=== PATIENT | female | born 1955 | race Caucasian/White ===

== ENCOUNTER 2017-11-07 14:52 | Outpatient (REF) | payer MEDICARE, MEDICAID, SELFPAY ==
[2017-11-07 21:32] LABS: ALT 249 U/L (12-78); AST 314 U/L (15-37); Albumin 3.1 g/dL (3.4-5.0); Alkaline Phosphatase 188 U/L (46-116); Anion Gap 8.6 mmol/L (3-11); BUN 7 mg/dL (7-18); Bilirubin, Total 0.4 mg/dL (0.2-1.0); CO2 31.4 mmol/L (21.0-32.0); CREATININE 0.63 mg/dL (0.55-1.02); Calcium 8.9 mg/dL (8.5-10.1); Chloride 100 mmol/L (98-107); Glucose 62 mg/dL (70-100); Potassium 4.3 mmol/L (3.5-5.1); Sodium 140 mmol/L (136-145)
== END 2017-11-07 14:53 ==
LOC: NCHCN 14:52
PROVIDERS: PCP Nurse Practitioner Family; Visit Provider Registered Nurse
DX: F10.20 Alcohol dependence, uncomplicated (principal); F32.9 Major depressive disorder, single episode, unspecified
CPT/HCPCS: 80053

== ENCOUNTER 2017-11-15 12:02 | Outpatient (REF) | payer MEDICARE, MEDICAID, SELFPAY ==
[2017-11-15 20:32] LABS: Bilirubin Negative (Negative); Blood Small (Negative); Clarity Sl Cloudy; Glucose Negative (Negative); Ketones Negative (Negative); Leukocyte Esterase Moderate (Negative); Nitrite Negative (Negative); Specific Gravity <= 1.005 (1.005-1.025)
[2017-11-15 20:38] LABS: Bacteria Few HPF (Negative); C & S Indicated? C&S Done As Ordered; Casts Negative LPF (Negative); Crystals Negative HPF (Negative); Epithelial Cells Few HPF (Negative); Mucus Negative (Negative); WBC >50 HPF (0-5)
== END 2017-11-15 12:03 ==
LOC: NCHCN 12:02
PROVIDERS: PCP Nurse Practitioner Family; Visit Provider Registered Nurse
DX: R35.0 Frequency of micturition (principal); R39.15 Urgency of urination
CPT/HCPCS: 87077; 81003; 81015; 87086; 87186

== ENCOUNTER 2018-08-06 14:23 | Outpatient (REF) | payer MEDICARE, MEDICAID, SELFPAY ==
[2018-08-06 22:02] LABS: ALT 438 U/L (12-78); AST 499 U/L (15-37); Albumin 3.4 g/dL (3.4-5.0); Alkaline Phosphatase 211 U/L (46-116); Anion Gap 7.2 mmol/L (3-11); BUN 12 mg/dL (7-18); Bilirubin, Total 1.8 mg/dL (0.2-1.0); CO2 28.8 mmol/L (21.0-32.0); CREATININE 0.78 mg/dL (0.55-1.02); Calcium 8.7 mg/dL (8.5-10.1); Chloride 98 mmol/L (98-107); Glucose 94 mg/dL (70-100); Potassium 3.9 mmol/L (3.5-5.1); Sodium 134 mmol/L (136-145); Total Protein 7.4 g/dL (6.4-8.2)
[2018-08-06 22:29] LABS: Bilirubin Moderate (Negative); Blood Negative (Negative); Clarity Sl Cloudy; Glucose 100 mg/dL (Negative); Ketones 15 mg/dL (Negative); Leukocyte Esterase Negative (Negative); Nitrite Negative (Negative)
[2018-08-06 22:39] LABS: Bacteria Negative HPF (Negative); Epithelial Cells Negative HPF (Negative); Other Cells Negative (Negative); RBC Negative (0-2); WBC Negative HPF (0-5)
[2018-08-06 22:40] LABS: C & S Indicated? No; Casts Negative LPF (Negative); Crystals Many Amorphous HPF (Negative); Mucus Negative (Negative)
== END 2018-08-06 14:43 ==
LOC: NCHCN 14:23
PROVIDERS: PCP Nurse Practitioner Family; Visit Provider Registered Nurse
DX: R74.8 Abnormal levels of other serum enzymes (principal); R82.90 Unspecified abnormal findings in urine
CPT/HCPCS: 80053; 80076; 81003; 81015

== ENCOUNTER 2018-08-14 19:58 | Outpatient (REF) | payer MEDICARE, MEDICAID, SELFPAY ==
[2018-08-14 20:49] LABS: ALT 282 U/L (12-78); AST 290 U/L (15-37); Alkaline Phosphatase 158 U/L (46-116); Bilirubin, Total 0.9 mg/dL (0.2-1.0); Sodium 137 mmol/L (136-145); Total Protein 6.7 g/dL (6.4-8.2)
[2018-08-14 21:06] LABS: Bilirubin, Direct 0.67 mg/dL (0.00-0.20)
[2018-08-18 12:00] LABS: Hepatitis C Ab w Rflx HCV PCR Reactive (NEGAT)
[2018-08-18 12:08] LABS: HBs Antibody, Quant 248.1 mIU/mL; Hepatitis B Surface Ab Positive
== END 2018-08-14 20:18 ==
LOC: NCHCN 19:58
PROVIDERS: PCP Nurse Practitioner Family; Visit Provider Registered Nurse
DX: R94.5 Abnormal results of liver function studies (principal)
CPT/HCPCS: 80076; 86706; 86803; 84295; 87522

== ENCOUNTER 2018-08-28 12:55 | Outpatient (REF) | payer MEDICARE, MEDICAID, SELFPAY ==
[2018-08-29 12:40] LABS: ALT 100 U/L (12-78); AST 71 U/L (15-37); Albumin 2.4 g/dL (3.4-5.0); Alkaline Phosphatase 140 U/L (46-116); Bilirubin, Direct 0.41 mg/dL (0.00-0.20); Bilirubin, Total 0.7 mg/dL (0.2-1.0); Total Protein 7.2 g/dL (6.4-8.2)
[2018-09-01 10:49] LABS: HIV-1/2 Ag & Ab Screen Negative (NEGAT)
[2018-09-01 11:27] LABS: Syphilis Serology (RPR) Negative (Negative)
[2018-09-01 13:50] LABS: Chlamydia Result Negative; GC Result Negative; Specimen Description URINE
[2018-09-01 23:30] LABS: HCV Genotype Undetected (Undetected)
== END 2018-08-28 13:15 ==
LOC: NCHCN 12:55
PROVIDERS: PCP Nurse Practitioner Family; Visit Provider Registered Nurse
DX: B19.20 Unspecified viral hepatitis C without hepatic coma (principal); Z11.3 Encounter for screening for infections with a predominantly sexual mode of transmission; Z11.4 Encounter for screening for human immunodeficiency virus [HIV]
CPT/HCPCS: 80076; 87389; 87491; 87591; 86592; 87521

== ENCOUNTER 2018-08-29 22:01 | Outpatient (REF) | payer MEDICARE, MEDICAID, SELFPAY ==
[2018-08-29 21:07] LABS: INR 1.2 (0.9-1.1); Prothrombin Time 11.8 sec (9.3-11.0)
== END 2018-08-29 22:21 ==
LOC: NCHCN 22:01
PROVIDERS: PCP Nurse Practitioner Family; Visit Provider Registered Nurse
DX: B19.20 Unspecified viral hepatitis C without hepatic coma (principal); Z11.3 Encounter for screening for infections with a predominantly sexual mode of transmission
CPT/HCPCS: 85610

== ENCOUNTER 2018-09-09 14:19 | Outpatient (REF) | payer MEDICARE, MEDICAID, SELFPAY ==
[2018-09-12 15:03] LABS: HCV RNA Detection Quantitative 556 IU/mL (UNDECT)
== END 2018-09-09 14:39 ==
LOC: NCHCN 14:19
PROVIDERS: PCP Nurse Practitioner Family; Visit Provider Registered Nurse
DX: B19.20 Unspecified viral hepatitis C without hepatic coma (principal)
CPT/HCPCS: 86803; 87522

== ENCOUNTER 2018-10-13 21:44 | Outpatient (REF) | payer MEDICARE, MEDICAID, SELFPAY ==
[2018-10-13 21:41] LABS: INR 1.2 (0.9-1.1); Prothrombin Time 11.7 sec (9.3-11.0)
[2018-10-13 21:46] LABS: ALT 73 U/L (12-78); AST 68 U/L (15-37); Albumin 3.9 g/dL (3.4-5.0); Alkaline Phosphatase 128 U/L (46-116); Bilirubin, Direct 0.17 mg/dL (0.00-0.20); Bilirubin, Total 0.5 mg/dL (0.2-1.0); Total Protein 7.9 g/dL (6.4-8.2)
[2018-10-13 21:50] LABS: HCT 36.1 % (36.0-46.0); HGB 12.6 g/dL (12.0-15.5); Mean Corp. HGB Concentration 34.9 g/dL (32.0-36.0); Mean Corpuscular Hemoglobin 33.5 pg (27.0-33.0); RBC 3.76 m/cumm (4.00-5.20); RBC Distribution Width 13.5 % (11.7-14.6); White Blood Cell Count 5.02 k/cumm (4.4-10.8)
[2018-10-13 22:41] LABS: Platelet Count 116 x1000/uL (130-400)
[2018-10-15 10:59] LABS: Hep A Total Ab w Rflx IgM Negative (NEGAT)
[2018-10-15 14:49] LABS: HCV RNA Detection Quantitative 815 IU/mL (UNDECT)
== END 2018-10-13 22:04 ==
LOC: NCHCN 21:44
PROVIDERS: PCP Nurse Practitioner Family; Visit Provider Registered Nurse
DX: B19.20 Unspecified viral hepatitis C without hepatic coma (principal)
CPT/HCPCS: 80076; 85027; 86709; 85610; 87522

== ENCOUNTER 2018-12-15 13:00 | Outpatient (REF) | payer MEDICARE, MEDICAID, SELFPAY ==
[2018-12-15 21:41] LABS: ALT 144 U/L (14-59); AST 181 U/L (15-37); Albumin 3.3 g/dL (3.4-5.0); Alkaline Phosphatase 129 U/L (46-116); Bilirubin, Direct 0.32 mg/dL (0.00-0.20); Bilirubin, Total 0.6 mg/dL (0.2-1.0); Total Protein 7.3 g/dL (6.4-8.2)
== END 2018-12-15 13:20 ==
LOC: NCHCN 13:00
PROVIDERS: PCP Nurse Practitioner Family; Visit Provider Registered Nurse
DX: R94.5 Abnormal results of liver function studies (principal); B19.20 Unspecified viral hepatitis C without hepatic coma
CPT/HCPCS: 80076

== ENCOUNTER 2019-01-14 15:16 | Outpatient (REF) | payer MEDICARE, MEDICAID, SELFPAY ==
[2019-01-14 22:18] LABS: Prothrombin Time 12.5 sec (9.3-11.0)
[2019-01-14 22:19] LABS: HCT 36.2 % (36.0-46.0); HGB 11.9 g/dL (12.0-15.5); INR 1.2 (0.9-1.1); Mean Corp. HGB Concentration 32.9 g/dL (32.0-36.0); Mean Corpuscular Hemoglobin 30.4 pg (27.0-33.0); Mean Corpuscular Volume 92.3 fL (80-95); Mean Platelet Volume 12.4 fL (8.0-11.0); Platelet Count 179 x1000/uL (130-400); RBC 3.92 m/cumm (4.00-5.20); RBC Distribution Width 14.6 % (11.7-14.6); White Blood Cell Count 7.43 k/cumm (4.4-10.8)
[2019-01-15 09:07] LABS: ALT 278 U/L (14-59); AST 325 U/L (15-37); Albumin 3.3 g/dL (3.4-5.0); Alkaline Phosphatase 115 U/L (46-116); Bilirubin, Total 0.5 mg/dL (0.2-1.0); TSH 1.37 uIU/mL (0.36-3.74); Total Protein 7.2 g/dL (6.4-8.2); Vitamin B12 793 pg/mL (193-986)
[2019-01-15 09:16] LABS: Bilirubin, Direct 0.24 mg/dL (0.00-0.20)
[2019-01-15 14:16] LABS: Vitamin D 25 Total > 150 ng/ml (30-100)
[2019-01-17 09:23] LABS: HCV Genotype 1a (Undetected)
== END 2019-01-14 15:36 ==
LOC: NCHCN 15:16
PROVIDERS: PCP Registered Nurse; Visit Provider Registered Nurse
DX: B19.20 Unspecified viral hepatitis C without hepatic coma (principal); R53.83 Other fatigue; E67.3 Hypervitaminosis D
CPT/HCPCS: 80076; 82306; 85027; 82607; 84443; 85610; 87521; 87522

== ENCOUNTER 2019-02-11 13:02 | Outpatient (REF) | payer MEDICARE, MEDICAID, SELFPAY ==
[2019-02-11 22:01] LABS: Abs Immature Grans 0.01 k/cumm (0.0-0.09); Absolute Basophil Count 0.08 k/cumm (0.0-0.2); Absolute Eosinophil Count 0.15 k/cumm (0.0-0.7); Absolute Lymphocyte Count 1.79 k/cumm (1.2-3.4); Absolute Monocyte Count 0.59 k/cumm (0.11-0.7); Absolute Neutrophil Count 4.12 k/cumm (1.2-6.7); Basophils % 1.2; Eosinophils % 2.2; HCT 37.4 % (36.0-46.0); HGB 12.5 g/dL (12.0-15.5); Immature Grans % 0.1; Lymphocytes % 26.6; Mean Corp. HGB Concentration 33.4 g/dL (32.0-36.0); Mean Corpuscular Hemoglobin 29.9 pg (27.0-33.0); Mean Corpuscular Volume 89.5 fL (80-95); Mean Platelet Volume 12.9 fL (8.0-11.0); Monocytes % 8.8; Neutrophils % 61.1; Platelet Count 166 x1000/uL (130-400); RBC 4.18 m/cumm (4.00-5.20); White Blood Cell Count 6.74 k/cumm (4.4-10.8)
[2019-02-11 22:20] LABS: Iron 102 ug/dL (50-175); Total Iron Binding Capacity 464 ug/dL (250-450); Transferrin Sat 22 % (15-50)
[2019-02-11 22:51] LABS: Vitamin B12 921 pg/mL (193-986)
== END 2019-02-11 13:22 ==
LOC: NCHCN 13:02
PROVIDERS: PCP Registered Nurse; Visit Provider Nurse Practitioner Family
DX: B19.20 Unspecified viral hepatitis C without hepatic coma (principal); F32.9 Major depressive disorder, single episode, unspecified; R53.83 Other fatigue
CPT/HCPCS: 82607; 83540; 83550; 85025; 87522

== ENCOUNTER 2019-05-21 15:19 | Outpatient (REF) | payer MEDICARE, MEDICAID, SELFPAY ==
[2019-05-21 21:22] LABS: INR 1.3 (0.9-1.1); Prothrombin Time 12.6 sec (9.3-11.0)
[2019-05-21 21:41] LABS: ALT 140 U/L (14-59); AST 169 U/L (15-37); Albumin 3.6 g/dL (3.4-5.0); Alkaline Phosphatase 164 U/L (46-116); Anion Gap 10.3 mmol/L (3-11); BUN 7 mg/dL (7-18); Bilirubin, Total 0.8 mg/dL (0.2-1.0); CO2 27.7 mmol/L (21.0-32.0); CREATININE 0.72 mg/dL (0.55-1.02); Calcium 8.5 mg/dL (8.5-10.1); Chloride 99 mmol/L (98-107); Glucose 83 mg/dL (74-106); Potassium 4.1 mmol/L (3.5-5.1); Sodium 137 mmol/L (136-145); Total Protein 7.9 g/dL (6.4-8.2)
[2019-05-21 21:50] LABS: Abs Immature Grans 0.01 k/cumm (0.0-0.09); Absolute Basophil Count 0.08 k/cumm (0.0-0.2); Absolute Eosinophil Count 0.12 k/cumm (0.0-0.7); Absolute Lymphocyte Count 1.91 k/cumm (1.2-3.4); Absolute Monocyte Count 0.51 k/cumm (0.11-0.7); Absolute Neutrophil Count 3.74 k/cumm (1.2-6.7); Basophils % 1.3; Eosinophils % 1.9; HCT 40.5 % (36.0-46.0); HGB 13.1 g/dL (12.0-15.5); Immature Grans % 0.2 %; Mean Corp. HGB Concentration 32.3 g/dL (32.0-36.0); Mean Corpuscular Hemoglobin 28.7 pg (27.0-33.0); Mean Corpuscular Volume 88.6 fL (80-95); Mean Platelet Volume 12.8 fL (8.0-11.0); Neutrophils % 58.6; Platelet Count 178 x1000/uL (130-400); RBC 4.57 m/cumm (4.00-5.20); RBC Distribution Width 17.9 % (11.7-14.6); White Blood Cell Count 6.37 k/cumm (4.4-10.8)
[2019-05-26 08:10] LABS: Hepatitis C Ab w Rflx HCV PCR Reactive (Negative)
== END 2019-05-21 15:39 ==
LOC: NCHCN 15:19
PROVIDERS: PCP Registered Nurse; Visit Provider Registered Nurse
DX: B19.20 Unspecified viral hepatitis C without hepatic coma (principal); R10.9 Unspecified abdominal pain
CPT/HCPCS: 80053; 86803; 85025; 85610; 87522

== ENCOUNTER 2020-04-13 18:48 | Outpatient (REF) | payer MEDICARE, MEDICAID, SELFPAY ==
[2020-04-13 22:35] LABS: HCT 33.6 % (36.0-46.0); HGB 10.5 g/dL (11.2-15.7); MCH 26.1 pg (27.0-33.0); MCHC 31.3 % (32.0-36.0); MCV 83.6 fL (80-95); MPV 11.9 fL (8.0-11.0); RBC 4.02 10^6/uL (3.93-5.22); RDW 19.9 % (11.7-14.6); RDW-SD 61.1 fL; WBC 5.61 10^3/uL (4.4-10.8)
[2020-04-13 22:36] LABS: INR 1.3 (0.9-1.1); Prothrombin Time 13.1 sec (9.3-11.0)
[2020-04-13 22:42] LABS: ALT 162 U/L (14-59); AST 170 U/L (15-37); Albumin 3.1 g/dL (3.4-5.0); Alkaline Phosphatase 143 U/L (46-116); Anion Gap 8.1 mmol/L (3-11); BUN 7 mg/dL (7-18); Bilirubin, Total 0.6 mg/dL (0.2-1.0); CO2 27.9 mmol/L (21.0-32.0); Calcium 8.1 mg/dL (8.5-10.1); Chloride 100 mmol/L (98-107); Glucose 92 mg/dL (74-106); Potassium 3.8 mmol/L (3.5-5.1); Sodium 136 mmol/L (136-145); Total Protein 7.4 g/dL (6.4-8.2)
[2020-04-13 22:57] LABS: Platelet Count 144 10^3/uL (130-400)
[2020-04-16 10:16] LABS: AFP Tumor Marker 6.5 ng/mL (<8.1)
== END 2020-04-13 19:08 ==
LOC: NCHCN 18:48
PROVIDERS: PCP Registered Nurse; Visit Provider Registered Nurse
DX: I85.00 Esophageal varices without bleeding (principal); Z86.010 Personal history of colon polyps; B19.20 Unspecified viral hepatitis C without hepatic coma; K74.60 Unspecified cirrhosis of liver; F10.20 Alcohol dependence, uncomplicated
CPT/HCPCS: 80053; 85027; 82105; 85610

== ENCOUNTER 2020-09-29 10:55 | Outpatient (REF) | payer OTHER, MEDICAID, SELFPAY ==
[2020-09-30 13:24] LABS: HCV RNA Qualitative Detected (Undetected)
== END 2020-09-29 10:56 | disposition home or self-care (01) ==
LOC: NCHCN 10:55
PROVIDERS: PCP Registered Nurse; Visit Provider Registered Nurse
DX: B19.20 Unspecified viral hepatitis C without hepatic coma (principal)
CPT/HCPCS: 87522

== ENCOUNTER 2020-10-13 14:53 | Outpatient (REF) | payer OTHER, MEDICAID, SELFPAY ==
[2020-10-13 14:04] LABS: HCT 36.1 % (36.0-46.0); HGB 11.7 g/dL (11.2-15.7); MCH 29.4 pg (27.0-33.0); MCHC 32.4 % (32.0-36.0); MCV 90.7 fL (80-95); MPV 12.2 fL (8.0-11.0); Platelet Count 132 10^3/uL (130-400); RBC 3.98 10^6/uL (3.93-5.22); RDW-SD 62.5 fL; WBC 6.42 10^3/uL (4.4-10.8)
[2020-10-13 14:23] LABS: ALT 141 U/L (14-59); AST 215 U/L (15-37); Albumin 2.5 g/dL (3.4-5.0); Alkaline Phosphatase 173 U/L (46-116); Anion Gap 8.7 mmol/L (3-11); BUN 5 mg/dL (7-18); Bilirubin, Total 1.3 mg/dL (0.2-1.0); CO2 24.3 mmol/L (21.0-32.0); CREATININE 0.6 mg/dL (0.55-1.02); Calcium 8.1 mg/dL (8.5-10.1); Chloride 105 mmol/L (98-107); Glucose 71 mg/dL (74-106); Potassium 3.6 mmol/L (3.5-5.1); Sodium 138 mmol/L (136-145); TSH 1.49 uIU/mL (0.36-3.74); Total Protein 6.9 g/dL (6.4-8.2)
== END 2020-10-13 14:54 | disposition home or self-care (01) ==
LOC: NCHCN 14:53
PROVIDERS: PCP Registered Nurse; Visit Provider Registered Nurse
DX: B19.20 Unspecified viral hepatitis C without hepatic coma (principal); R53.83 Other fatigue; R94.5 Abnormal results of liver function studies; R10.9 Unspecified abdominal pain
CPT/HCPCS: 80053; 85027; 84443

== ENCOUNTER 2021-08-02 12:43 | Outpatient (REF) | payer MEDICARE, MEDICAID, SELFPAY ==
[2021-08-02 15:40] LABS: HCT 38.4 % (36.0-46.0); HGB 12.2 g/dL (11.2-15.7); MCH 29.1 pg (27.0-33.0); MCHC 31.8 % (32.0-36.0); MCV 92 fL (80-95); MPV 12.4 fL (8.0-11.0); Platelet Count 182 10^3/uL (130-400); RBC 4.19 10^6/uL (3.93-5.22); RDW 16.6 % (11.7-14.6); RDW-SD 56.4 fL; WBC 8.84 10^3/uL (4.4-10.8)
[2021-08-02 15:52] LABS: INR 1.2 (0.9-1.1); Prothrombin Time 11.9 sec (9.3-11.0)
[2021-08-02 16:47] LABS: ALT 50 U/L (14-59); AST 50 U/L (15-37); Albumin 3.2 g/dL (3.4-5.0); Alkaline Phosphatase 146 U/L (46-116); Anion Gap 9.5 mmol/L (3-11); BUN 5 mg/dL (7-18); Bilirubin, Total 0.4 mg/dL (0.2-1.0); CO2 24.5 mmol/L (21.0-32.0); CREATININE 0.7 mg/dL (0.55-1.02); Calcium 8.7 mg/dL (8.5-10.1); Chloride 102 mmol/L (98-107); Sodium 136 mmol/L (136-145); Total Protein 7.4 g/dL (6.4-8.2)
[2021-08-02 17:24] LABS: Glucose 47 mg/dL (74-106)
== END 2021-08-02 12:44 | disposition home or self-care (01) ==
LOC: NCHCN 12:43
PROVIDERS: PCP Registered Nurse; Visit Provider Registered Nurse
DX: K74.60 Unspecified cirrhosis of liver (principal); F10.20 Alcohol dependence, uncomplicated
CPT/HCPCS: 80053; 85027; 85610

== ENCOUNTER 2022-03-01 14:11 | Outpatient (REF) | payer MEDICARE, MEDICAID, SELFPAY ==
--- NOTE | 2022-03-01 13:35 | PAPFT_PTH ---
PATIENT: [place] Betancur [facility] U[facility][id number] AGE/SX: 66/F ROOM: RE03/01/[address]: Adriana Cox : 1955 BED: DIS: 03/01/2022 SPEC #: [id number] RECD: 03/02/22 13:01 STATUS: SOCO COOK #: [id number] CAPO: 03/01/22 13:[address]: Adriana Cox DEPT: [facility] Cytology RECD BY: Светлана Pace Tissues: 1 - CX/ENDOCX FOR PAP SMEARS Procedures: PAP THIN PREP/[facility] Screening HPV DNA PROBE Comments: [id number]
== END 2022-03-01 14:12 | disposition home or self-care (01) ==
LOC: NCHCN 14:11
PROVIDERS: PCP Registered Nurse; Visit Provider Registered Nurse
DX: Z12.4 Encounter for screening for malignant neoplasm of cervix (principal); Z11.51 Encounter for screening for human papillomavirus (HPV); Z01.419 Encounter for gynecological examination (general) (routine) without abnormal findings
CPT/HCPCS: 88142; 87624

== ENCOUNTER 2022-09-06 15:47 | Outpatient (REF) | payer MEDICARE, SELFPAY ==
[2022-09-06 20:19] LABS: Anion Gap 5.2 mmol/L (3-11); BUN 6 mg/dL (7-18); CO2 27.8 mmol/L (21.0-32.0); CREATININE 0.6 mg/dL (0.55-1.02); Calcium 8.9 mg/dL (8.5-10.1); Chloride 97 mmol/L (98-107); Estimated GFR 98.93 (mL/min/1.73m2); Glucose 61 mg/dL (74-106); Potassium 3.9 mmol/L (3.5-5.1); Sodium 130 mmol/L (136-145)
== END 2022-09-06 15:48 | disposition home or self-care (01) ==
LOC: NCHCN 15:47
PROVIDERS: PCP Registered Nurse; Visit Provider Registered Nurse
DX: I10 Essential (primary) hypertension (principal)
CPT/HCPCS: 80048